=== PATIENT | male | born 2000 | race African-American/Black ===

== ENCOUNTER 2021-11-01 10:05 | Emergency (ER) | payer MEDICAID ==
[~2021-11-01] VITALS: Ht 182.9 cm; Wt 118.0 kg
[2021-11-01] MEDS ORDERED: PREDNISONE 20MG TABLET PO ONE (13:00)
[2021-11-01] MEDS ORDERED: ALBUTEROL (0.083%) 2.5MG/3ML NEB HHN ONE ×2 (13:00→14:45)
[2021-11-01] MEDS ORDERED: ALBU18HF2 IH (15:42)
[2021-11-01] MEDS ORDERED: P20 MT (15:42)
[2021-11-01 15:55] VITALS: BP 101/58
== END 2021-11-01 15:55 | disposition home or self-care (01) ==
LOC: ER 10:05
DX: R06.2 Wheezing (principal); R05.9 Cough, unspecified; R09.81 Nasal congestion; Z20.822 Contact with and (suspected) exposure to COVID-19; F12.90 Cannabis use, unspecified, uncomplicated
CPT/HCPCS: 71045; 87426; 94640; 99284; C9803; J7512; Z7610

== ENCOUNTER 2023-10-10 08:58 | Emergency (ER) | payer MEDICAID ==
[~2023-10-10] VITALS: Ht 182.9 cm; Wt 139.5 kg
[~2023-10-10 08:58] MED LIST: ALBU18HF2 IH; P20 MT
[2023-10-10 09:05] VITALS: BP 165/103; RESP 16; TEMP 98.3; O2SAT 99
[2023-10-10 09:10] VITALS: PULSE 89
[2023-10-10] MEDS ORDERED: NAPR-681 MT (09:40)
[2023-10-10] MEDS ORDERED: AMOX1TAB16 MT (09:40)
== END 2023-10-10 10:27 | disposition home or self-care (01) ==
LOC: ER 08:58
DX: K08.89 Other specified disorders of teeth and supporting structures (principal)
CPT/HCPCS: 99283